=== PATIENT | male | born 2000 | race African-American/Black ===

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

== ENCOUNTER 2022-07-08 18:00 | Emergency (ER) | payer MEDICAID, SELFPAY ==
[2022-07-08 18:01] VITALS: BP 189/115; PULSE 108; RESP 19; TEMP 36.7; O2SAT 96; BMI 41.8
--- NOTE | 2022-07-08 19:16 | CT_ITS ---
EXAM: CT NECK WITH INTRAVENOUS CONTRAST CLINICAL INDICATION: tonsillitis TECHNIQUE: Helically acquired images were obtained of the neck with intravenous contrast. This CT exam was performed using one or more of the following dose reduction techniques: automated exposure control, adjustment of the mA and/or kV according to patient size, and/or use of iterative reconstruction technique. This report was created using enrich-in report [employer] technology. CONTRAST: IV 75mL [id number]-370 RADIATION DOSE: CTDIvol = 19.85 mGy, DLP = 614.83 mGy-cm COMPARISON: None. FINDINGS: NASOPHARYNX: Unremarkable. SUPRAHYOID NECK: Unremarkable. Oropharynx, oral cavity, parapharyngeal space and retropharyngeal space are unremarkable. INFRAHYOID NECK: Unremarkable. The larynx, hypopharynx and supraglottis are unremarkable. SUBMANDIBULAR/PAROTID GLANDS: Unremarkable. Glands are normal in size. THYROID: Unremarkable. No enlarged or calcified nodules. SINUSES: Maxillary and ethmoid sinus disease. BONES/JOINTS: No acute fracture. SOFT TISSUES: Unremarkable. VASCULATURE: No acute findings. LYMPH NODES: Unremarkable. No lymphadenopathy. LUNG APICES: Unremarkable as visualized. CT/Soft Tissue Neck WITH Contrast IMPRESSION: Maxillary and ethmoid sinus disease. Electronically Signed: Henri Carrillo MD at 20:28 EDT ,
--- NOTE | 2022-07-08 19:18 | EX.ED.DYSGE1 ---
HPI History of Present Illness Chief Complaint: Sore Throat Informant: patient Onset/Context/Timing Onset: Weeks (2-weeks) Current Severity: Mild Maximum Severity: Moderate Narrative Narrative: Patient presents secondary to sore throat. He reports URI symptoms with congestion and cough for the past 2 weeks. He went to urgent care today and because of his muffled voice he was sent to the emergency room with no further testing. Patient states his voice sounds a little bit more muffled than normal, but has been that way since he got sick. He had subjective fever but did not measure temperature. He did not test himself for COVID. [facility] Medical History Anxiety Hypertension Home Medications amoxicillin 500 mg capsule 500 mg PO BID #20 caps 07/08/22 [Rx Last Taken Unknown] Allergy/AdvReac Type Severity Reaction Status Date / Time No Known Allergies Allergy Verified 10/02/21 08:42 Social History Smoking Status: Current every day smoker tobacco type: cigarettes ROS ROS ED Constitutional Constitutional ED: Reports fever(s) and subjective; Denies chills Eyes Eyes: Denies change in vision or discharge from eye(s) ENT ENT ED: Reports sore throat and other Details: Congestion ; Denies discharge from eye(s) or rhinorrhea Cardiovascular Cardiovascular: Denies chest pain or palpitations Respiratory/Chest Respiratory/Chest: Reports cough; Denies dyspnea Gastrointestinal Gastrointestinal: Denies abdominal pain, diarrhea, nausea or vomiting Genitourinary Genitourinary ED: Denies dysuria Musculoskeletal Musculoskeletal: Denies back pain or extremity pain Integumentary Denies Abrasions or rash Neurologic Neurologic: Denies headache(s) or weakness Psychiatric Psychiatric: Denies anxiety or depression Allergic/Immunologic Allergic/Immunologic ED: Denies lip swelling or urticaria EXAM Physical Exam Const Vital Signs: 07/08/22 18:01 Temperature 98.1 F Temperature Source Temporal Pulse Rate 108 H Respiratory Rate 19 H Blood Pressure 189/115 H Blood Pressure Mean 139 Pulse Ox 96 Oxygen Delivery Method Room Air Positive well nourished and well developed General Appearance ED: well developed HEENT Reports normocephalic and head/scalp atraumatic HEENT Narrative: 3+ tonsils, symmetric. No exudate noted. Uvula midline. Patient tolerating secretions well. Eyes PERRL and EOMs intact bilaterally Neck supple Chest Wall inspection of chest normal and palpation of chest normal Resp normal respiratory effort and clear to auscultation bilaterally Cardio regular rate and regular rhythm GI normal to inspection, nondistended, normoactive bowel sounds Palpation: soft Extremity normal to inspection Neuro oriented x3 and no sensory deficits noted Sensorium / Orientation: alert Motor Exam: strength 5/5 throughout Psych mental status grossly normal Skin no rashes or lesions noted MDM MDM MDM Narrative Medical decision making narrative: Patient given Toradol and Decadron. Lab work obtained along with a CT scan of the neck. Lab Data Attestation: I reviewed the patient's lab results. Labs: Laboratory Results - last 24 hr 07/08/22 07/08/22 19:27 19:27 WBC 9.0 RBC 4.83 Hgb 14.7 Hct 43.9 MCV 90.9 MCH 30.4 MCHC 33.5 RDW Std Deviation 43.5 RDW Coeff of Abhay 12.9 Plt Count 357 MPV 10.1 Immature Gran % (Auto) 0.400 Neut % (Auto) 57.5 Lymph % (Auto) 27.8 [place] % (Auto) 10.5 H Eos % (Auto) 3.1 Baso % (Auto) 0.7 Absolute Neuts (auto) 5.2 Absolute Lymphs (auto) 2.49 Nucleated RBC % 0 Sodium 142 Potassium 3.9 Chloride 108 H Carbon Dioxide 29.0 Anion Gap 5 BUN 12 Creatinine 0.83 Estim Creat Clear Calc 151.20 Est GFR (MDRD) Af Amer 152 Est GFR (MDRD) Non-Af 126 BUN/Creatinine Ratio 14.5 Glucose 103 Calcium 9.6 Radiography Diagnostic Testing: Clinical Impression(s) from Imaging Studies Soft Tissue Neck CT 07/08/22 19:16 IMPRESSION: Maxillary and ethmoid sinus disease. Electronically Signed: Henri Carrillo MD at 20:28 EDT , Treatment and Re-Evaluation Narrative: Rapid COVID test is negative. Rapid strep test is positive. CBC reveals normal white count. Chemistry studies unremarkable. CT scan of the neck reveals no evidence of abscess. Test results discussed with the patient. He would like to take oral pills for his strep pharyngitis. He will be started on amoxicillin. Return instructions provided. Discharge Plan Triage Chief Complaint: Sore Throat ED Provider: Delfina Kahn Dx/Rx/DC Orders Clinical Impression: Strep pharyngitis Instructions: ED Pharyngitis, Strep (Confirmed) Prescriptions: New amoxicillin 500 mg capsule 500 mg PO BID Qty: 20 0RF Primary Care Provider: Care Physician,No Primary Referrals: Gerard Fan MD [Med Staff - Active Staff] - As Needed Care Physician,No Primary [Primary Care Provider] - Disposition Disposition: Home, Self Care
[2022-07-08] MEDS: Ketorolac 30 MG/ML Syringe IV (19:30)
[2022-07-08] MEDS: dexAMETHasone 10 MG/ML Vial IV (19:30)
[2022-07-08 19:36] LABS: Absolute Lymphocyte Count 2.49 X10^3/uL (0.83-4.51); Absolute Neutrophil Count 5.2 X10^3/uL (2.0-7.7); Basophil# 0.06 X10^3/uL; Basophil% 0.7 % (0-1); Eosinophil# 0.28 X10^3/uL; Eosinophils% 3.1 % (0-5); Hematocrit 43.9 % (40-54); Hemoglobin 14.7 g/dL (13.0-16.5); Lymphocyte # 2.49 X10^3/ul (0.83-4.51); Lymphocyte % 27.8 % (19-41); Mean Corp Hgb Conc 33.5 g/dL (32-36); Mean Corpuscular Hgb 30.4 pg (27.0-32.0); Mean Corpuscular Volume 90.9 fL (80-94); Mean Platelet Vol. 10.1 fl (6.2-12.0); Monocyte# 0.94 X10^3/uL; Monocyte% 10.5 % (0-10); NRBC Flagged by Analyzer 0 % (0-5); Neutrophil # 5.16 X10^3/uL (2.7-7.7); Neutrophil % 57.5 % (47-70); Platelet Count 357 K/mm3 (150-450); RBC Distribution Width CV 12.9 % (11.6-14.6); RBC Distribution Width SD 43.5 fl (35.1-43.9); Red Blood Count 4.83 M/mm3 (4.6-6.2)
[2022-07-08 20:00] LABS: Anion Gap 5 (5-15); BUN 12 mg/dL (7-18); BUN/Creat Ratio 14.5 RATIO (10-20); Calcium,Total 9.6 mg/dL (8.5-10.1); Chloride 108 mmol/L (98-107); Creatinine, Serum 0.83 mg/dL (0.70-1.30); EST Glomerular Filtration Rate 126 mL/min (>60); Est Glom Filt Rate - Afr Amer 152 mL/min (>60); Glucose 103 mg/dL (74-106); Potassium 3.9 mmol/L (3.5-5.1); Sodium Level 142 mmol/L (136-145)
[2022-07-08] MEDS: AMOXICILLIN 500 MG CAPSULE PO (21:11)
== END 2022-07-08 21:16 | disposition home or self-care (01) ==
PROVIDERS: Emergency Provider Emergency Medicine; Visit Provider Emergency Medicine
DX: J02.0 Streptococcal pharyngitis (principal); I10 Essential (primary) hypertension; F17.210 Nicotine dependence, cigarettes, uncomplicated; Z20.822 Contact with and (suspected) exposure to COVID-19
CPT/HCPCS: 70491; 80048; 85025; 87811; 87880; 96374; 96375; 99284; Q9967; A4216

== ENCOUNTER → 2022-07-24 | Outpatient (CLI) | payer MEDICAID, SELFPAY | END | disposition home or self-care (01) | LOC: SL 20:27 | PROVIDERS: Visit Provider Nurse Practitioner Family | DX: R06.81 Apnea, not elsewhere classified (principal) | CPT/HCPCS: 95811 ==

== ENCOUNTER → 2022-08-12 | Outpatient (CLI) | payer MEDICAID, SELFPAY | END | disposition home or self-care (01) | LOC: SL 11:14 | PROVIDERS: Visit Provider Nurse Practitioner Acute Care | DX: Z00.00 Encounter for general adult medical examination without abnormal findings (principal) ==

== ENCOUNTER 2022-10-02 18:20 | Emergency (ER) | payer MEDICAID, SELFPAY ==
[2022-10-02 18:21] VITALS: BP 185/131; PULSE 96; RESP 14; TEMP 36.6; O2SAT 97; BMI 41.0
--- NOTE | 2022-10-02 21:41 | EX.ED.DYSGE1 ---
HPI <TAWNY Boss - Last Filed: 10/02/22 23:18> History of Present Illness Chief Complaint: Sore Throat Narrative Narrative: Patient presents today with a sore throat that he has had for about a week now. He states he also has a dry cough at times when laying down. He states he has had strep throat in the past when he was younger and this feels similar. He denies shortness of breath, inability to swallow, nasal congestion, fever, chills, abdominal pain, nausea, vomiting, and diarrhea. He denies a history of chronic health conditions. PFSH <TAWNY Boss - Last Filed: 10/02/22 23:18> COUNTS INCLUDE 234 BEDS AT THE [facility] Medical History Anxiety Hypertension Home Medications prednisone 20 mg tablet 40 mg PO DAILY 5 days #10 tabs 10/02/22 [Rx Last Taken Unknown] Allergy/AdvReac Type Severity Reaction Status Date / Time No Known Allergies Allergy Verified 10/02/22 18:21 Social History Smoking Status: Current every day smoker tobacco type: cigarettes ROS <TAWYN Boss - Last Filed: 10/02/22 23:18> ROS ED Constitutional Constitutional ED: Denies chills, fever(s) or sweats Eyes Eyes: Denies change in vision or discharge from eye(s) ENT ENT ED: Reports sore throat; Denies discharge from eye(s), nasal congestion or rhinorrhea Cardiovascular Cardiovascular: Denies chest pain or palpitations Respiratory/Chest Respiratory/Chest: Reports cough; Denies dyspnea or dyspnea on exertion Gastrointestinal Gastrointestinal: Denies abdominal pain, nausea or vomiting Genitourinary Genitourinary ED: Denies dysuria, hematuria or urinary frequency Musculoskeletal Musculoskeletal: Denies myalgias or neck pain Integumentary Denies abscess, Abrasions or rash Neurologic Neurologic: Reports headache(s); Denies paresthesias or weakness Psychiatric Psychiatric: Denies depression or suicidal thoughts Endocrine Endocrinology: Denies polydipsia or polyuria EXAM <TAWYN Boss - Last Filed: 10/02/22 23:18> Physical Exam Const Vital Signs: 10/02/22 18:21 10/02/22 22:51 10/02/22 23:20 Temperature 97.9 F Temperature Source Temporal Pulse Rate 96 107 H 107 H Respiratory Rate 14 15 15 Blood Pressure 185/131 H Blood Pressure Mean 149 Pulse Ox 97 97 97 Oxygen Delivery Method Room Air Room Air Positive well developed and obese General Appearance ED: well developed Nutritional Appearance: obese HEENT Reports normocephalic, head/scalp atraumatic and TM's clear HEENT Narrative: tonsils erythemic and enlarged, symmetric. No exudate noted. Uvula midline. Trachea midline. Patient tolerating secretions well. No signs of peritonsillar abscess. Patient has full range of motion of his neck. Tympanic Membrane ED: Yes TM's clear Eyes PERRL and EOMs intact bilaterally Neck full ROM, supple and no meningeal signs General: Negative for anterior neck swelling Chest Wall inspection of chest normal and palpation of chest normal Resp normal respiratory effort and clear to auscultation bilaterally Cardio regular rate and regular rhythm GI non-tender, non-distended and no masses Palpation: soft Back/Spine normal ROM Extremity normal to inspection Neuro oriented x3 and no sensory deficits noted Sensorium / Orientation: alert Motor Exam: strength 5/5 throughout and muscle tone normal throughout Psych mental status grossly normal Skin no rashes or lesions noted and no wounds <Dr. Erasmo Herrera DO - Last Filed: 10/03/22 04:57> Physical Exam Const Vital Signs: 10/02/22 18:21 10/02/22 22:51 10/02/22 23:20 Temperature 97.9 F Temperature Source Temporal Pulse Rate 96 107 H 107 H Respiratory Rate 14 15 15 Blood Pressure 185/131 H Blood Pressure Mean 149 Pulse Ox 97 97 97 Oxygen Delivery Method Room Air Room Air MDM <TAWNY Boss - Last Filed: 10/02/22 23:18> [facility] Narrative Medical decision making narrative: Patient presents with a sore throat that he has had for about a week. Because he is not having any other cold/flu symptoms I have not tested for COVID or influenza A. He is nontoxic-appearing and in no acute distress. He is afebrile. Tonsils are erythemic and edematous without exudate. Rapid strep a test negative. It is likely that patient has a viral pharyngitis. I am not concerned for a peritonsillar abscess or retropharyngeal abscess. Patient does not have any anterior neck swelling. Patient is able to swallow without difficulty. He is having no difficulty breathing and O2 sat is 97% on room air. He was given a dose of prednisone here in the ED as well as a prescription for home. I am comfortable with patient being discharged home in stable condition. He has been given return instructions. I have encouraged him to follow-up with PCP. Patient is comfortable with plan. <Dr. Erasmo Herrera, DO - Last Filed: 10/03/22 04:57> [facility] Treatment and Re-Evaluation Narrative: I evaluated the patient along with the physician marketing assistant retail division as documented below Patient is a 22-year-old male with history of hypertension and sleep apnea. He reports that he has had approximately 5 days of sore throat. He reports it is difficult to swallow but he denies any change in voice or inability to swallow. He denies any known sick contacts but states that he has concern for infection and therefore comes in for evaluation PE: General: Awake alert no acute distress Heart: Regular rate and rhythm Lungs: Clear to auscultation Neck: Positive anterior cervical lymphadenopathy noted without crepitance Throat: Patient has bilateral tonsil hypertrophy with cobblestoning no diffuse erythema no hard palate petechiae no trismus or change in voice. Patient does not have difficulty with secretions either Patient presented to the ER afebrile and in no acute respiratory distress. He did not have trismus change in voice or difficulty with secretions and can move his neck in both directions without pain going against any type of peritonsillar or retropharyngeal abscess. Secondary to sound he felt need for rapid strep swab which was negative. Therefore at this time symptoms are most consistent with a viral pharyngitis and be placed on steroids secondary to it. However as his exam does not suggest he has a retropharyngeal or peritonsillar abscess there is no need for further work-up and he is otherwise safe for discharge Discharge Plan Triage Chief Complaint: Sore Throat ED Midlevel Provider: Kim Ibarra ED Provider: Erasmo Herrera Dx/Rx/DC Orders Clinical Impression: Pharyngitis Instructions: ED URI, Viral, No Abx (Adult) Prescriptions: New prednisone 20 mg tablet 40 mg PO DAILY 5 Days Qty: 10 0RF Primary Care Provider: Care Physician,No Primary Referrals: Care Physician,No Primary [Primary Care Provider] - Activity Restrictions/Additional Instructions: Please follow-up with PCP and return if symptoms worsen. You can take Tylenol and ibuprofen for pain. Disposition Disposition: Home, Self Care Discharge Date/Time: 10/02/22 23:21
[2022-10-02 22:51] VITALS: PULSE 107; RESP 15; O2SAT 97
[2022-10-02] MEDS: predniSONE 20 MG Tablet 40 MG PO (23:17)
[2022-10-02 23:20] VITALS: PULSE 107; RESP 15; O2SAT 97
== END 2022-10-02 23:21 | disposition home or self-care (01) ==
PROVIDERS: Emergency Provider Emergency Medicine; Visit Provider Emergency Medicine
DX: J02.9 Acute pharyngitis, unspecified (principal); I10 Essential (primary) hypertension; F17.210 Nicotine dependence, cigarettes, uncomplicated; R60.9 Edema, unspecified; E66.9 Obesity, unspecified; Z79.52 Long term (current) use of systemic steroids
CPT/HCPCS: 87880; 99283